=== PATIENT | male | born 1955 | race Caucasian/White ===

== ENCOUNTER 2017-04-21 10:19 | Outpatient (CLI) | payer BC ==
[2017-04-21 11:30] LABS: Mean Platelet Volume 8.3 fL (7.4-10.4); Red Blood Cell (RBC) Count 4.96 mill/uL (4.70-6.10); White Blood Cell (WBC) Count 5.1 thou/uL (4.8-10.8)
[2017-04-21 11:40] LABS: PTT 28.2 SEC (22.9-36.1); Prothrombin Time 12.9 SEC (12.0-14.7)
[2017-04-21 11:50] LABS: Anion Gap 12 mmol/L (10-20); BUN (Urea Nitrogen) 14 mg/dL (8.4-25.7); Calc. Creatinine Clearance 0 mL/min (70-130); Calcium 9.6 mg/dL (7.8-10.44); Carbon Dioxide 25 mmol/L (23-31); Chloride 101 mmol/L (98-107); Estimated GFR-MDRD 72
== END 2017-04-21 10:20 | disposition home or self-care (01) ==
LOC: LABBT 10:19
PROVIDERS: ATTEND Surgery
DX: Z01.818 Encounter for other preprocedural examination (principal); M48.061 Spinal stenosis, lumbar region without neurogenic claudication; M54.16 Radiculopathy, lumbar region
CPT/HCPCS: 80048; 85027; 85610; 85730

== ENCOUNTER 2017-04-23 07:45 | Day surgery (SDC) | payer BC ==
[2017-04-21 10:40] VITALS: BMI 32.5
[2017-04-23] MEDS ORDERED: Acetaminophen 1,000 MG in Premix Bag 1 BAG IVPB SCH (09:00)
[2017-04-23] MEDS ORDERED: Scopolamine 1.5 mg/72 hour Patch TOP SCH (09:00)
[2017-04-23] MEDS ORDERED: Scopolamine 1.5 mg/72 hour Patch ONE (09:48)
[2017-04-23] MEDS ORDERED: CEFAZOLIN/Water 2 GM/20 ML SYRINGE ONE (09:48)
[2017-04-23] MEDS ORDERED: Thrombin 5000 UNITS/5 ML VIAL ONE (10:10)
[2017-04-23] MEDS ORDERED: Bacitracin Zinc Ointment 30 gm TUBE ONE (10:10)
[2017-04-23] MEDS ORDERED: Sodium Chloride 0.9% 10 ML ONE (10:18)
[2017-04-23] MEDS ORDERED: Midazolam HCl 2 mg/2 ml Vial ONE (10:23)
[2017-04-23] MEDS ORDERED: Fentanyl 100 MCG/2 ML VIAL ONE ×4 (10:23→14:04)
[2017-04-23] MEDS ORDERED: Promethazine HCl 25 MG/ML VIAL ONE (10:27)
[2017-04-23] MEDS ORDERED: Metoclopramide HCl 10 MG/2 ML VIAL ONE (10:39)
[2017-04-23] MEDS ORDERED: Glycopyrrolate 0.2 MG/ML 5 ML SYRINGE ONE (10:39)
[2017-04-23] MEDS ORDERED: Ketorolac Tromethamine 30 MG/ML VIAL ONE (10:39)
[2017-04-23] MEDS ORDERED: diphenhydrAMINE 50 MG/ML VIAL ONE (10:39)
[2017-04-23] MEDS ORDERED: Dexamethasone 20 MG/5 ML VIAL ONE (10:39)
[2017-04-23] MEDS ORDERED: PHENYLEPHRINE-NS 100 MCG/ML 10 ML SYRINGE ONE ×2 (10:39)
[2017-04-23] MEDS ORDERED: Lidocaine 1% PF 5 ML VIAL ONE (10:39)
[2017-04-23] MEDS ORDERED: Propofol 200 MG/20 ML VIAL ONE ×2 (10:39)
[2017-04-23] MEDS ORDERED: traMADol HCl 50 MG TAB PO PRN (13:02)
[2017-04-23] MEDS ORDERED: Milk Of Magnesia 30 ML UDCUP PO PRN (13:02)
[2017-04-23] MEDS ORDERED: Mag-Al 1200 mg/1200 mg/30 ML UDCUP PO PRN (13:02)
[2017-04-23] MEDS ORDERED: Fleet Enema 133 ML BOT PR PRN (13:02)
[2017-04-23] MEDS ORDERED: Bisacodyl 10 MG SUPP PR PRN (13:02)
[2017-04-23] MEDS ORDERED: Acetaminophen 325 MG TAB PO PRN (13:02)
[2017-04-23] MEDS ORDERED: Acetaminophen/Codeine 30-300mg Tablet PO PRN (13:02)
[2017-04-23] MEDS ORDERED: Promethazine HCl 25 MG/ML VIAL IM PRN (13:02)
[2017-04-23] MEDS: Sodium Chloride 0.9% 1,000 ML IV SCH (14:48)
--- NOTE | 2017-04-23 15:51 | OP ---
OR: 11. WOUND TYPE: Type 1 wound. SURGEON: Kike Chang M.D. RAILROAD CONSTRUCTION DIRECTOR: John Gannon PA-C. PREPROCEDURE DIAGNOSIS: Lumbar stenosis with low back and leg pain. POSTPROCEDURE DIAGNOSIS: Lumbar stenosis with low back and leg pain. PROCEDURES: L3-L5 decompressive laminectomy, partial facetectomies, foraminotomies L3, L4, L5 nerve roots. DESCRIPTION OF PROCEDURE: After informed consent was obtained from the patient, the patient was brou ght to OR 11. Proper patient pause and identification was carried out. He was placed under excellen t general endotracheal anesthesia and positioned prone on the operating room table. All appropriate points were padded. We identified the L3, L4, L5 dorsal spines and linear sobeida was made over this ar ea. This region was sterilely cleansed, prepared, and draped. Proper patient pause and identificati on was then carried out. The wound was then opened with a combination of sharp, monopolar, and blunt dissection. The L3, L4, L5 dorsal spines and lamina were exposed. Localization film confirmed our area of interest. We then performed L3, L4, L5 laminectomies, partial facetectomies and foraminotomi es over the L3, L4, L5 nerve roots. Copious irrigation occurred throughout. There was no spinal flu id leak and we maximized hemostasis. Once we were satisfied with the decompression, the wound was th en closed in anatomic layers following the sprinkling of vancomycin powder. The patient then emerged from anesthesia.
[2017-04-23] MEDS ORDERED: Morphine PF 1 MG/ML SYR IVP PRN (15:52)
[2017-04-23] MEDS: CEFAZOLIN/Water 2 GM/20 ML SYRINGE SLOW IVP SCH (16:00)
--- NOTE | 2017-04-23 17:13 | EKG ---
Test Reason : PREOP Blood Pressure : / mmHG Vent. Rate : 068 BPM Atrial Rate : 068 BPM P-R Int : 190 ms QRS Dur : 084 ms QT Int : 394 ms P-R-T Axes : 030 015 006 degrees QTc Int : 418 ms Normal sinus rhythm Cannot rule out Inferior infarct , age undetermined No previous ECGs available Confirmed by KIMMIE FORDE, DR. Sevilla ([id number]) on 04/23/2017 5:12:44 PM Referred By: RYDER Confirmed By:DR. Di BURKS MD
[2017-04-23] MEDS: HYDROcodone/Acetaminophen 7.5/325 mg Tablet PO PRN (20:56)
[2017-04-24] MEDS: HYDROcodone/Acetaminophen 7.5/325 mg Tablet PO PRN ×2 (02:57→09:34)
[2017-04-24] MEDS: Sodium Chloride 0.9% 1,000 ML IV SCH (02:58)
[2017-04-24] MEDS: CEFAZOLIN/Water 2 GM/20 ML SYRINGE SLOW IVP SCH (02:58)
[2017-04-24] MEDS: tiZANidine HCl 4 MG TAB PO PRN ×2 (03:13→10:09)
[2017-04-24 08:29] VITALS: TEMP 98
[2017-04-24] MEDS ORDERED: Valsartan 80 MG TAB PO SCH (09:00)
[2017-04-24] MEDS ORDERED: Hydrochlorothiazide 25 MG TAB PO SCH (09:00)
[2017-04-24] MEDS ORDERED: Meloxicam 15 MG TAB PO SCH (09:00)
[2017-04-24] MEDS ORDERED: Non-Formulary Item 1 EACH (Valsartan/Hydrochlorothiazide [Valsartan-Hctz 320-12.5 Mg Tab] PO SCH (09:00)
[2017-04-24 10:10] VITALS: BP 104/63
--- NOTE | 2017-04-24 18:53 | PRG ---
DATE OF SERVICE: 04/24/2017 Mr. Bell is doing well postoperative day #1 from a lumbar decompression in one period of left lower extremity pain, but this was only while mobilizing. Otherwise, he is doing very well with as expect ed incisional and postoperative pain. We are managing that satisfactorily and his neurological exam demonstrates a good strength. We went over intraoperative and postoperative issues. We will plan on dismissal.
== END 2017-04-24 10:50 | disposition home or self-care (01) ==
LOC: SDC 07:45 → SURG B 14:40 → SDC 04-24 10:50
PROVIDERS: ATTEND Surgery
PROC: 00NY0ZZ Release Lumbar Spinal Cord, Open Approach (ICD-10-PCS; principal; 2017-04-24)
DX: M48.061 Spinal stenosis, lumbar region without neurogenic claudication (principal); M54.16 Radiculopathy, lumbar region; Z91.048 Other nonmedicinal substance allergy status; Z88.8 Allergy status to other drugs, medicaments and biological substances
CPT/HCPCS: 76001; 93005; 93010; 96374; A4216; J0131; J1100; J1200; J1885; J2001; J2250; J2274; J2550; J2704; J2765; J3010; J3370; J3490

== ENCOUNTER 2017-07-15 09:43 | Outpatient (CLI) | payer BC ==
--- NOTE | 2017-07-15 12:08 | RAD ---
RIGHT HIP 2 VIEWS: HISTORY: Radiculopathy. Pain. COMPARISON: None. FINDINGS: There is moderate degenerative change of the right hip joint space. Mild osteophyte formation is not ed. Contour of the femoral head is maintained. No fracture. Visualized right bony pelvis is unrema rkable. IMPRESSION: Moderate degenerative change. POS: [facility]ENN[facility]ER
--- NOTE | 2017-07-15 12:11 | RAD ---
LEFT HIP TWO VIEWS: Indication: Lumbar radiculopathy, left hip pain. FINDINGS: There is endstage osteoarthritis of the left hip with obliteration of the joint space, subchondral sc lerosis, and degenerative cyst formation. No acute fracture visualized. Phleboliths and vascular calc ifications are seen overlying the pelvis. There is incidental note of degenerative change at the sacr oiliac joints, and symphysis pubis. Osteoarthritis is partially seen within the contralateral right h ip. IMPRESSION: Endstage osteoarthritis of the left hip. POS: JENNIFER
--- NOTE | 2017-07-15 12:14 | RAD ---
LUMBAR SPINE FOUR VIEWS: HISTORY: Lumbar radiculopathy. Radiation to both hips. COMPARISON: None. FINDINGS: There are five lumbar type vertebral bodies. Laminectomy defect at L4 and L5. Vertebral body height is maintained. No fracture. With interposition, no significant spondylolisthesis. No abnormal tra nslational motion upon extension or flexion. Mild degenerative changes of the posterior elements of the lower lumbar spine are noted. Minimal atherosclerosis of the aorta. IMPRESSION: Degenerative changes and post surgical changes of the lumbar spine as above. POS: ROXANA
--- NOTE | 2017-07-15 13:13 | MRI ---
MRI LUMBAR SPINE WITHOUT AND WITH CONTRAST: HISTORY: Previous laminectomy x 2. Low back pain. Pain radiates in both hips, left greater than right. COMPARISON: None. TECHNIQUE: MRI lumbar spine is performed without intravenous Gadolinium administration. Multisequential, multip lanar imaging is performed. FINDINGS: Appropriate T1 marrow signal of lumbar vertebrae. The lumbar spine vertebral body height is maintain ed. No fracture. No significant STIR hyperintensity to suggest edema or ligamentous injury. Symmetric signal intensity of the psoas muscles. There is a T2 hyperintensity in the left renal space which may represent a cyst measuring 9.0 x 7.3 c m. Additional smaller cysts are suspected. Conus medullaris terminates at the inferior end plate of T12. On the postcontrast images, no abnormal enhancement. Laminectomy defect at L3-L4 and L4-L5. On the postcontrast images, there is enhancing scar tissue at the laminectomy defect site. T11-T12: No significant central canal stenosis or foraminal narrowing. T12-L1: Adequate disk hydration. No significant central canal stenosis or foraminal narrowing. L1-L2: Adequate disk hydration. No significant central canal stenosis. Neural foramen are patent b ilaterally. L2-L3: Adequate disk hydration. No significant posterior disk abnormality. Minimal ligamentum flav um thickening and facet hypertrophy. No significant central canal stenosis. The neural foramen are patent bilaterally. L3-L4: Adequate disk hydration. Posterior decompressive laminectomy defect. No high-grade central canal stenosis. Minimal bilateral foraminal narrowing. L4-L5: Posterior decompressive laminectomy defect. No high-grade central canal stenosis. There is some enhancing scar tissue posterior to the traversing left and right S1 nerve roots. Scar tissue do es not completely encompass the traversing S1 nerve roots. Thee is mild loss of disk space height. There is a generalized disk bulge. There is no high-grade central canal stenosis. Mild right and mo derate left foraminal narrowing. L5-S1: No significant posterior disc abnormality. No significant central canal stenosis. Neural foramina are patent. There is partial lumbarization of S1. IMPRESSION: 1. Postsurgical changes at L5-S1 and L5-S1. There is some enhancing scar tissue at the L5-S1 level which abuts both traversing S1 nerve roots, without completely encompassing the nerve roots. 2. Left foraminal stenosis at L5-S1 as described above. POS: [facility]
[2017-07-15] MEDS ORDERED: Gadobenate Dimeglumine 529 MG/1 ML (20ML VIAL) ONE (13:19)
== END 2017-07-15 09:44 | disposition home or self-care (01) ==
LOC: TBSIIMAG 09:43
PROVIDERS: ATTEND Surgery
DX: M47.26 Other spondylosis with radiculopathy, lumbar region (principal); M25.551 Pain in right hip; M25.552 Pain in left hip; M16.12 Unilateral primary osteoarthritis, left hip; M99.53 Intervertebral disc stenosis of neural canal of lumbar region; M99.54 Intervertebral disc stenosis of neural canal of sacral region; Z98.890 Other specified postprocedural states
CPT/HCPCS: 72110; 72158; A9579